=== PATIENT | male | born 1990 | race Caucasian/White ===

== ENCOUNTER 2022-02-05 11:10 | Outpatient (CLI) | payer OTHER, SELFPAY ==
[2022-02-05 22:16] LABS: Chloride* 101 mmol/L (96-114); Potassium* 4.2 mmol/L (3.6-5.1); Sodium* 141 mmol/L (135-149)
[2022-02-05 22:19] LABS: Blood Urea Nitrogen* 16 mg/dL (5-24); Carbon Dioxide* 30 mmol/L (20-32); Estimated Glomerular Filt Rate 104 ml/min
[2022-02-05 22:20] LABS: Calcium* 9.9 mg/dL (8.4-10.6); Glucose* 67 mg/dL (60-115)
== END 2022-02-05 11:11 | disposition home or self-care (01) ==
LOC: FRMREF 11:10
PROVIDERS: PCP Family Medicine; Visit Provider Family Medicine
DX: Z01.810 Encounter for preprocedural cardiovascular examination (principal)
CPT/HCPCS: 80048